=== PATIENT | female | born 1945 | race Two or more races ===

== ENCOUNTER → 2019-02-15 | Outpatient (CLI) | payer OTHER | END | disposition home or self-care (01) | LOC: TOM 09:41 | DX: M19.011 Primary osteoarthritis, right shoulder (principal) ==

== ENCOUNTER 2019-04-22 06:25 | Outpatient (CLI) | payer OTHER ==
[2019-04-22] MEDS ORDERED: MEDROL4 MG PO (10:49)
[2019-04-22] MEDS ORDERED: ULTRAM50 MG PO (10:49)
[2019-04-22] MEDS ORDERED: COZAAR25 MG PO (10:49)
[2019-04-22] MEDS ORDERED: MTX SUPPORT TA1 EACH (10:50)
[2019-04-22] MEDS ORDERED: ATORVASTATIN CA10 MG PO (10:50)
[2019-04-22] MEDS ORDERED: FORTAMET500 MG PO (10:50)
[2019-04-22] MEDS ORDERED: OMEPRAZOLE MAGN20 MG PO (10:50)
[2019-04-22] MEDS ORDERED: TOPROL XL25 M1 PO (10:51)
[2019-04-22] MEDS ORDERED: PLAVIX75 MG PO (10:51)
[2019-04-22] MEDS ORDERED: FOLIC ACID0.8 M1 (10:52)
[2019-04-22] MEDS ORDERED: LASIX20 MG PO (10:52)
[2019-04-22] MEDS ORDERED: PROCEL1 EACH PO (10:53)
[2019-04-22] MEDS ORDERED: NABUMETONE500 MG PO (10:53)
== END 2019-04-22 06:34 | disposition home or self-care (01) ==
LOC: LAB 06:25
DX: D64.89 Other specified anemias (principal); E88.89 Other specified metabolic disorders; D68.8 Other specified coagulation defects; N39.0 Urinary tract infection, site not specified; Z22.322 Carrier or suspected carrier of Methicillin resistant Staphylococcus aureus; E13.69 Other specified diabetes mellitus with other specified complication; E55.9 Vitamin D deficiency, unspecified; Z76.89 Persons encountering health services in other specified circumstances; I49.8 Other specified cardiac arrhythmias

== ENCOUNTER 2019-04-25 11:36 | Inpatient (IN) | payer OTHER ==
[~2019-04-25] VITALS: Ht 149.9 cm; Wt 63.5 kg
[~2019-04-25 11:36] MED LIST: ATORVASTATIN CA10 MG PO; COZAAR25 MG PO; FOLIC ACID0.8 M1; FORTAMET500 MG PO; LASIX20 MG PO; MEDROL4 MG PO; MTX SUPPORT TA1 EACH; NABUMETONE500 MG PO; OMEPRAZOLE MAGN20 MG PO; PLAVIX75 MG PO; PROCEL1 EACH PO; TOPROL XL25 M1 PO; ULTRAM50 MG PO
[2019-05-01] MEDS ORDERED: GLUMETZA500 MG PO (08:11)
[2019-05-01] MEDS ORDERED: RELAFEN PO (08:11)
[2019-05-07] MEDS ORDERED: PLAVIX75 MG PO (08:23)
[2019-05-07] MEDS ORDERED: METHOTREXATE2.5 MG PO (08:26)
[2019-05-07] MEDS ORDERED: NABUMETONE500 MG (08:26)
== END 2019-05-09 15:53 | disposition home or self-care (01) | DRG 483 ==
LOC: SURG 05-07 05:24 → O/R 05-07 05:24 → SURG 05-07 07:00
PROVIDERS: ADMIT Orthopaedic Surgery
PROC: 0RRJ00Z Replacement of Right Shoulder Joint with Reverse Ball and Socket Synthetic Substitute, Open Approach (ICD-10-PCS; principal; 2019-05-07 07:00)
DX: M19.011 Primary osteoarthritis, right shoulder (principal); I10 Essential (primary) hypertension

== ENCOUNTER 2019-06-12 11:31 | Outpatient (CLI) | payer OTHER ==
[~2019-06-12 11:31] MED LIST changes: +GLUMETZA500 MG PO; +METHOTREXATE2.5 MG PO; +NABUMETONE500 MG; +RELAFEN PO
== END 2019-06-12 14:38 | disposition home or self-care (01) ==
LOC: RAD 11:31
DX: M25.571 Pain in right ankle and joints of right foot (principal); M24.174 Other articular cartilage disorders, right foot